=== PATIENT | male | born 1985 | race Caucasian/White ===

== ENCOUNTER 2017-02-21 16:46 | Emergency (ER) | payer BC ==
[~2017-02-21] VITALS: Ht 185.4 cm; Wt 125.0 kg
[2017-02-21 16:49] VITALS: BP 178/90; PULSE 81; TEMP 98.4
[2017-02-21] MEDS ORDERED: NORCO 325 MG-51 TAB PO (17:30)
== END 2017-02-21 17:41 | disposition home or self-care (01) ==
LOC: COL.ER 16:46
DX: M25.512 Pain in left shoulder (principal); X50.0XXA Overexertion from strenuous movement or load, initial encounter; Y92.009 Unspecified place in unspecified non-institutional (private) residence as the place of occurrence of the external cause